=== PATIENT | female | born 1995 | race Hispanic/Latino ===

== ENCOUNTER 2019-10-04 13:40 | Outpatient (CLI) | payer BC, OTHER ==
--- NOTE | 2019-10-04 15:11 | ULT ---
OB ULTRASOUND: HISTORY: anatomy. FINDINGS: A single live intrauterine gestation is seen with measurements corresponding to an estimated gestatio nal age of 20 weeks 1 day and an SHANELL of 02/20/2020. The estimated weight measures 346 g or 12 o z (47th percentile by Hadlock criteria). measurements are as follows: BPD: 4.58 cm (19 weeks 6 days) HC: 17.16 cm (19 weeks 6 days) AC: 15.94 cm (21 weeks 1 day) FL: 3.11 cm (19 weeks 5 days) heart rate measures 136 beats per minute. Placenta is posteriorly located without placenta prev ia. KAYLYN measures 10.6 cm. The cervix measures 4.5 cm in length. Three vessel cord, cord insertion, kidneys, bladder, stomach, four chambered heart, lateral bradford tricles, cerebellum, spine, lips/nose and upper and lower extremities are visualized. No definite fet al anomalies are seen. IMPRESSION: Single live intrauterine of 20 weeks' 1 day estimated gestational age and estimated date of delivery of 02/20/2020. POS: [facility]
== END 2019-10-04 13:41 | disposition home or self-care (01) ==
LOC: BICULT 13:40
PROVIDERS: ATTEND Family Medicine
DX: Z34.02 Encounter for supervision of normal first pregnancy, second trimester (principal); Z3A.20 20 weeks gestation of pregnancy
CPT/HCPCS: 76805

== ENCOUNTER 2020-02-16 22:24 | Inpatient (IN) | payer BC, OTHER ==
[2020-02-16 22:59] VITALS: BMI 39.4
[2020-02-16 23:20] LABS: Amnisure Internal Control QC ACCEPTABLE (ACCEPTABLE); Amnisure Test RUPTURE DETECTED (No Rupture)
[2020-02-16] MEDS ORDERED: hydrALAZINE 20 MG/ML VIAL SLOW IVP PRN (23:35)
[2020-02-16] MEDS ORDERED: Carboprost 250 MCG/ML AMP IM PRN (23:35)
[2020-02-16] MEDS ORDERED: Acetaminophen 500 MG TAB PO PRN (23:35)
[2020-02-16] MEDS ORDERED: Ibuprofen 800 MG TAB PO PRN (23:35)
[2020-02-16] MEDS ORDERED: Zolpidem Tartrate 5 MG TAB PO PRN (23:35)
[2020-02-16] MEDS ORDERED: Lidocaine 1% (PF) 30 ML VIAL SC PRN (23:35)
[2020-02-16] MEDS ORDERED: Promethazine HCl 25 MG/ML VIAL IM PRN (23:35)
[2020-02-16] MEDS ORDERED: NS / Oxytocin 40 units/1000ml 1,000 ML IV PRN (23:35)
[2020-02-16] MEDS ORDERED: Ondansetron PF 4 MG/2 ML Vial IVP PRN (23:35)
[2020-02-16] MEDS ORDERED: Misoprostol 200 MCG TAB PR PRN (23:35)
[2020-02-16] MEDS ORDERED: Diphenoxylate HCl/Atropine Tablet PO PRN ×2 (23:35)
[2020-02-16] MEDS ORDERED: Butorphanol Tartrate 1 MG/ML VIAL SLOW IVP PRN (23:35)
[2020-02-16] MEDS ORDERED: HYDROcodone/Acetaminophen 5/325 mg Tablet PO PRN (23:35)
[2020-02-16] MEDS ORDERED: NS w/ Oxytocin 10 units 500 ML IV SCH (23:45)
[2020-02-17] MEDS: Lactated Ringer's 1,000 ML IV SCH ×2 (00:49→07:31)
[2020-02-17 01:03] LABS: Hemoglobin 13.9 g/dL (12.0-16.0); Mean Corpuscular HGB CONC 34.1 g/dL (32.0-36.0); Mean Corpuscular Hemoglobin 31.9 pg (27.0-31.0); Mean Corpuscular Volume 93.6 fL (78.0-98.0); Mean Platelet Volume 10.2 fL (7.4-10.4); Platelet Count 166 thou/uL (130-400); RBC Distribution Width 12.8 % (11.5-14.5); Red Blood Cell (RBC) Count 4.37 mill/uL (4.20-5.40); White Blood Cell (WBC) Count 7.9 thou/uL (4.8-10.8)
[2020-02-17 01:37] LABS: HBSAg Index 0.17 S/CO (0-0.99); Hep B Surf Ag Non-Reactive S/CO (NonReactive)
[2020-02-17 04:02] LABS: Syphilis Antibody Nonreactive (Nonreactive); Syphilis Antibody Index 0.01 S/CO (<1.00 Non-Reactive)
[2020-02-17] MEDS ORDERED: diphenhydrAMINE 25 MG CAP PO PRN (13:21)
[2020-02-17] MEDS ORDERED: hydrALAZINE 20 MG/ML VIAL SLOW IVP PRN (13:21)
[2020-02-17] MEDS ORDERED: Bisacodyl 10 MG SUPP PR PRN (13:21)
[2020-02-17] MEDS ORDERED: Preparation H Ointment 57 gram tube RC PRN (13:21)
[2020-02-17] MEDS ORDERED: Benzocaine-Menthol 82.5 ML CAN TOP PRN (13:21)
[2020-02-17] MEDS ORDERED: Lanolin Ointment 7 GM TUBE TOP PRN (13:21)
[2020-02-17] MEDS ORDERED: Milk Of Magnesia 30 ML UDCUP PO PRN (13:21)
[2020-02-17] MEDS ORDERED: Methylergonovine 0.2 MG/ML VIAL ONE (13:51)
[2020-02-17] MEDS ORDERED: Misoprostol 200 MCG TAB ONE (13:51)
[2020-02-17] MEDS: NS / Oxytocin 40 units/1000ml 1,000 ML IV SCH ×2 (13:54→14:03)
[2020-02-17] MEDS ORDERED: Misoprostol 200 MCG TAB PO SCH (14:00)
[2020-02-17] MEDS ORDERED: Methylergonovine 0.2 MG/ML VIAL IM SCH (14:00)
[2020-02-17] MEDS: Ibuprofen 800 MG TAB PO SCH ×2 (14:03→22:54)
[2020-02-17] MEDS: HYDROcodone/Acetaminophen 5/325 mg Tablet PO PRN (16:05)
[2020-02-17] MEDS: Ferrous Sulfate 325 MG TAB PO SCH (17:20)
[2020-02-17] MEDS: Docusate Calcium (SURFAK) 240 MG CAP PO SCH (22:54)
[2020-02-18] MEDS: Ibuprofen 800 MG TAB PO SCH ×2 (05:41→13:29)
[2020-02-18 05:43] LABS: Hemoglobin 11.9 g/dL (12.0-16.0)
--- NOTE | 2020-02-18 08:05 | OP ---
DATE OF PROCEDURE: 02/17/2020 The patient delivered a female on 02/17/2020 at 11:36 a.m. by uncomplicated term spontaneous vaginal delivery. Gestational age is 39 weeks and 5 days. Weight 3401 g. Apgars were 9 and 9. Placenta delivered spontaneously followed by Pitocin infusion. Quantitative blood loss 140 mL. Delivering physician, Dr. Temo Herrera. Lacerations, none. Counts, correct. Complications, none. Mother and child are stable in the room in the immediate . Job ID: [id number]
[2020-02-18] MEDS: Ferrous Sulfate 325 MG TAB PO SCH (08:14)
[2020-02-18] MEDS: Docusate Calcium (SURFAK) 240 MG CAP PO SCH (08:15)
[2020-02-18] MEDS ORDERED: Prenatal Vitamin 1 TAB PO SCH (09:00)
[2020-02-18] MEDS ORDERED: Adacel (T-DAP) 0.5 ML SYRINGE IM ONE (09:00)
[2020-02-18 12:01] VITALS: BP 121/66; TEMP 98.5
[2020-02-18] MEDS: HYDROcodone/Acetaminophen 5/325 mg Tablet PO PRN (12:41)
== END 2020-02-18 16:45 | disposition home or self-care (01) | DRG 807 ==
LOC: L&D/OP 22:24 → L&D 23:35 → 3SE 02-17 15:37
PROVIDERS: ADMIT Obstetrics & Gynecology; ATTEND Obstetrics & Gynecology
PROC: 10E0XZZ Delivery of Products of Conception, External Approach (ICD-10-PCS; principal; 2020-02-16)
DX: O80 Encounter for full-term uncomplicated delivery (principal); Z37.0 Single live birth; Z3A.39 39 weeks gestation of pregnancy
CPT/HCPCS: 36415; 84112; 85014; 85018; 85027; 86780; 86850; 86900; 86901; 87340; J0595; J2210; J2590

== ENCOUNTER 2023-02-12 14:43 | Outpatient (CLI) | payer BC, OTHER | END 2023-02-12 14:44 | disposition home or self-care (01) | LOC: BICULT 14:43 | PROVIDERS: ATTEND Advanced Practice Midwife | DX: N60.02 Solitary cyst of left breast (principal) ==